=== PATIENT | female | born 1975 | race Asian ===

== ENCOUNTER 2018-09-25 11:42 | Emergency (ER) | payer OTHER ==
[~2018-09-25] VITALS: Ht 157.5 cm; Wt 65.9 kg
[2018-09-25 12:19] VITALS: BP_SYST 139
[2018-09-25] MEDS ORDERED: LEVO100 PO (12:25)
[2018-09-25] MEDS ORDERED: INSU100V SQ (12:25)
[2018-09-25] MEDS ORDERED: BRIV100T PO (12:25)
[2018-09-25] MEDS ORDERED: PREG75 PO (12:25)
[2018-09-25 12:30] LABS: GLUCOSE,POINT OF CARE 234 MG/DL (70-110)
[2018-09-25 12:56] LABS: BASOPHILS % (AUTO) 0.4 % (0.0-2.0); HEMATOCRIT 36.8 % (36-46); HEMOGLOBIN 11.7 g/dL (12.0-16.0); LYMPHOCYTES # (AUTO) 0.4 K/uL (1.0-4.8); MEAN CORPUSCULAR HEMOGLOBIN 29.9 pg (26.0-34.0); MEAN CORPUSCULAR HGB CONC 31.8 G/dL (31.0-37.0); MEAN CORPUSCULAR VOLUME 94 fL (80-100); MONOCYTES # (AUTO) 0.5 K/uL (0.1-1.0); MONOCYTES % (AUTO) 11.6 % (2.0-9.0); NEUTROPHILS # (AUTO) 3.1 K/uL (1.8-7.7); PLATELET COUNT (AUTO) 293 K/uL (150-450); RED BLOOD CELL COUNT(AUTO) 3.92 MIL/uL (4.00-5.20); RED CELL DISTRIBUTION WIDTH 15.8 % (11.5-14.5)
[2018-09-25 13:05] LABS: ANION GAP 7 mmol/L (8-16); CALCIUM, TOTAL 9.2 mg/dL (8.8-10.5); CARBON DIOXIDE 29 mmol/L (22-29); CHLORIDE 102 mmol/L (98-107); CREATININE 0.63 mg/dL (0.60-1.30); GLOMERULAR FILTR. RATE CALC > 60 mL/min (>60); GLUCOSE,RANDOM 221 mg/dL (70-110); POTASSIUM 4.1 mmol/L (3.5-5.1); SODIUM SERUM 138 mmol/L (136-145); UREA NITROGEN, BLOOD 13 mg/dL (7-18)
[2018-09-25 13:18] LABS: ALANINE AMINOTRANSFERASE 15 U/L (12-78); ALBUMIN 3.6 g/dL (3.4-5.0); ALKALINE PHOSPHATASE 79 U/L (46-116); ASPARTATE AMINOTRANSFERASE 18 U/L (15-37); BILIRUBIN,TOTAL 0.5 mg/dL (0.1-1.0); HCG,QUANTITATIVE < 1 mIU/mL (0-6); TOTAL PROTEIN, SERUM 6.8 g/dL (6.4-8.2)
[2018-09-25 13:21] LABS: ACETAMINOPHEN < 2 mcg/mL (10-30); SALICYLATE 0.2 mg/dL (2.8-20.0)
[2018-09-25 14:17] VITALS: BP_DIAS 68
[2018-09-25] MEDS ORDERED: ACETAMINOPHEN 500 MG TABLET PO ONE (14:30)
[2018-09-25 14:32] LABS: AMPHET/METH SCREEN,URINE NEGATIVE (NEGATIVE); BARBITURATE SCREEN, URINE NEGATIVE (NEGATIVE); BENZODIAZEPINES SCREEN,URINE NEGATIVE (NEGATIVE); CANNABINOID SCREEN,URINE NEGATIVE (NEGATIVE); COCAINE SCREEN,URINE NEGATIVE (NEGATIVE); METHADONE SCREEN, URINE NEGATIVE (NEGATIVE); OPIATE SCREEN,URINE NEGATIVE (NEGATIVE); PHENCYCLIDINE SCREEN,URINE NEGATIVE (NEGATIVE)
== END 2018-09-25 14:48 | disposition home or self-care (01) ==
LOC: EMS 11:43
DX: R45.851 Suicidal ideations (principal); J45.909 Unspecified asthma, uncomplicated; E11.9 Type 2 diabetes mellitus without complications; E03.9 Hypothyroidism, unspecified; Z79.4 Long term (current) use of insulin
CPT/HCPCS: 36415; 80053; 80307; 82962; 84702; 85025; 99285; G0480; G0481

== ENCOUNTER 2019-07-27 22:40 | Inpatient (IN) | payer MEDICAID, OTHER ==
[~2019-07-27] VITALS: Ht 157.5 cm; Wt 66.0 kg
[~2019-07-27 22:40] MED LIST: BRIV100T PO; INSU100V SQ; LEVO100 PO; PREG75 PO
[2019-07-27 23:26] LABS: BASOPHILS % (AUTO) 0.6 % (0.0-2.0); EOSINOPHILS % (AUTO) 4.4 % (1.0-6.0); HEMATOCRIT 40.3 % (36-46); HEMOGLOBIN 13.3 g/dL (12.0-16.0); LYMPHOCYTES # (AUTO) 0.9 K/uL (1.0-4.8); LYMPHOCYTES % (AUTO) 12.7 % (22.0-44.0); MEAN CORPUSCULAR HEMOGLOBIN 32.4 pg (26.0-34.0); MEAN CORPUSCULAR VOLUME 98 fL (80-100); MONOCYTES # (AUTO) 0.6 K/uL (0.1-1.0); NEUTROPHILS # (AUTO) 5.2 K/uL (1.8-7.7); NEUTROPHILS % (AUTO) 74.3 % (40.0-70.0); PLATELET COUNT (AUTO) 329 K/uL (150-450); RED BLOOD CELL COUNT(AUTO) 4.11 MIL/uL (4.00-5.20); RED CELL DISTRIBUTION WIDTH 13.5 % (11.5-14.5)
[2019-07-27] MEDS ORDERED: ACTIVATED CHARCOAL 50 GM/240 ML SUSPENSION PO ONE (23:30)
[2019-07-27 23:35] LABS: ANION GAP 6 mmol/L (8-16); CARBON DIOXIDE 27 mmol/L (22-29); CHLORIDE 108 mmol/L (98-107); GLOMERULAR FILTR. RATE CALC > 60 mL/min (>60); GLUCOSE,RANDOM 123 mg/dL (70-110); POTASSIUM 3.7 mmol/L (3.5-5.1); SODIUM SERUM 141 mmol/L (136-145); UREA NITROGEN, BLOOD 13 mg/dL (7-18)
[2019-07-27 23:44] LABS: SALICYLATE 0.9 mg/dL (2.8-20.0)
[2019-07-27 23:47] LABS: ALANINE AMINOTRANSFERASE 14 U/L (12-78); ALBUMIN 3.6 g/dL (3.4-5.0); ALKALINE PHOSPHATASE 76 U/L (46-116); ASPARTATE AMINOTRANSFERASE 11 U/L (15-37); BILIRUBIN,TOTAL 0.2 mg/dL (0.1-1.0); HCG,QUANTITATIVE < 1 mIU/mL (0-6); TOTAL PROTEIN, SERUM 6.9 g/dL (6.4-8.2)
[2019-07-27 23:49] LABS: ACETAMINOPHEN < 2 mcg/mL (10-30)
[2019-07-28 00:21] LABS: GLUCOSE,POINT OF CARE 157 MG/DL (70-110)
[2019-07-28 00:40] LABS: AMPHET/METH SCREEN,URINE NEGATIVE (NEGATIVE); BARBITURATE SCREEN, URINE NEGATIVE (NEGATIVE); BENZODIAZEPINES SCREEN,URINE NEGATIVE (NEGATIVE); CANNABINOID SCREEN,URINE NEGATIVE (NEGATIVE); COCAINE SCREEN,URINE NEGATIVE (NEGATIVE); METHADONE SCREEN, URINE NEGATIVE (NEGATIVE); OPIATE SCREEN,URINE NEGATIVE (NEGATIVE)
[2019-07-28 00:47] LABS: PHENCYCLIDINE SCREEN,URINE NEGATIVE (NEGATIVE)
[2019-07-28] MEDS ORDERED: INSLAN SQ (00:49)
[2019-07-28] MEDS ORDERED: GLUC1VIA6 IM (00:49)
[2019-07-28] MEDS ORDERED: FLUT16H NASAL (00:49)
[2019-07-28] MEDS ORDERED: NAPR-1025 PO (00:49)
[2019-07-28] MEDS ORDERED: FOLI-130 PO (00:49)
[2019-07-28] MEDS ORDERED: MONT10TA21 PO (00:49)
[2019-07-28] MEDS ORDERED: FERR325T24 PO (00:49)
[2019-07-28] MEDS ORDERED: TOPI100T37 PO (00:49)
[2019-07-28] MEDS ORDERED: ADV100 IH (00:49)
[2019-07-28] MEDS ORDERED: CLOB525T TP (00:49)
[2019-07-28 00:55] LABS: IRON, SERUM 120 mcg/dL (50-175)
[2019-07-28] MEDS ORDERED: HALOPERIDOL 5 MG TABLET PO PRN (04:00)
[2019-07-28] MEDS ORDERED: ZOLPIDEM TARTRATE 10 MG TABLET PO PRN (04:00)
[2019-07-28] MEDS ORDERED: LORazepam 2 MG TABLET PO PRN (04:00)
[2019-07-28 06:15] LABS: APPEARANCE,URINE CLEAR (CLEAR); BILIRUBIN,URINE NEGATIVE (NEGATIVE); GLUCOSE, URINE (UA) NEGATIVE (NEGATIVE); KETONES,URINE NEGATIVE (NEGATIVE); LEUKOCYTE ESTERASE ,URINE NEGATIVE (NEGATIVE); NITRATE,URINE NEGATIVE (NEGATIVE); OCCULT BLOOD,URINE NEGATIVE (NEGATIVE); PH,URINE 7.5 (5.0-8.0); PROTEIN,URINE NEGATIVE (NEGATIVE); UROBILINOGEN,URINE 0.2 mg/dL (<=1.0)
[2019-07-28 06:34] VITALS: BP 124/82
[2019-07-28] MEDS ORDERED: PNEUMOCOCCAL VACCINE POLYVALENT 0.5 ML VIAL [PPSV23] IM ONE (06:45)
[2019-07-28 08:00] VITALS: BP 116/64
[2019-07-28] MEDS ORDERED: MAG HYDROX/AL HYDROX/SIMETH ES 30 ML SUSPENSION UDCUP PO PRN (08:15)
[2019-07-28] MEDS ORDERED: ONDANSETRON HCL 4 MG TABLET PO PRN (08:15)
[2019-07-28] MEDS ORDERED: PETROLATUM,WHITE 28 GM JELLY TP PRN (08:15)
[2019-07-28] MEDS ORDERED: MAGNESIUM HYDROXIDE SUSPENSION 30 ML UDCUP PO PRN (08:15)
[2019-07-28] MEDS ORDERED: ACETAMINOPHEN 325 MG TABLET PO PRN (08:15)
[2019-07-28] MEDS ORDERED: CloNIDine HCL 0.1 MG TABLET PO PRN (08:15)
[2019-07-28] MEDS ORDERED: DOCUSATE SODIUM 100 MG CAPSULE PO PRN (08:15)
[2019-07-28] MEDS ORDERED: GuaiFENesin/D-METHORPHAN [SUGAR-FREE] 200-20MG/10 ML SYRUP UDCUP PO PRN (08:15)
[2019-07-28] MEDS ORDERED: LOPERAMIDE HCL 2 MG CAPSULE PO PRN (08:15)
[2019-07-28] MEDS ORDERED: IBUPROFEN 400 MG TABLET PO PRN (08:15)
[2019-07-28] MEDS ORDERED: ALBUTEROL SULFATE HFA 90 MCG/PUFF 8 GM INHALER IH PRN (08:15)
[2019-07-28 08:35] LABS: GLUCOMETER DEV NAME(LOC) 3E.I 2; GLUCOSE,POINT OF CARE 306 MG/DL (70-110)
[2019-07-28] MEDS ORDERED: DEXTROSE 50%-WATER 25 GM/50 ML SYRINGE IVP PRN (09:15)
[2019-07-28] MEDS: INSULIN LISPRO 100 UNITS/ML SQ PRN ×4 (10:06→20:41)
[2019-07-28] MEDS: INSULIN GLARGINE,HUM.REC.ANLOG 100 UNITS/ML SQ SCH ×2 (10:07→21:19)
[2019-07-28] MEDS: MONTELUKAST SODIUM 10 MG TABLET PO SCH (10:10)
[2019-07-28] MEDS: FOLIC ACID 1 MG TABLET PO SCH (10:11)
[2019-07-28 12:03] LABS: GLUCOMETER DEV NAME(LOC) 3E.I 2; GLUCOSE,POINT OF CARE 263 MG/DL (70-110)
[2019-07-28 16:00] VITALS: BP 108/87
[2019-07-28 17:32] LABS: GLUCOMETER DEV NAME(LOC) 3E.I 2; GLUCOSE,POINT OF CARE 288 MG/DL (70-110)
[2019-07-28] MEDS: CLOBETASOL 0.05% 25 ML SOLUTION TP SCH (20:15)
[2019-07-28 20:50] LABS: GLUCOMETER DEV NAME(LOC) 3E.I 2; GLUCOSE,POINT OF CARE 241 MG/DL (70-110)
[2019-07-29] MEDS: LEVOTHYROXINE SODIUM 100 MCG TABLET PO SCH (06:42)
[2019-07-29] MEDS: INSULIN LISPRO 100 UNITS/ML SQ PRN (07:08)
[2019-07-29 08:00] VITALS: BP 119/67
[2019-07-29 08:51] LABS: ALANINE AMINOTRANSFERASE 13 U/L (12-78); ALBUMIN 3.2 g/dL (3.4-5.0); ALKALINE PHOSPHATASE 65 U/L (46-116); ANION GAP 10 mmol/L (8-16); ASPARTATE AMINOTRANSFERASE 9 U/L (15-37); BILIRUBIN,TOTAL 0.5 mg/dL (0.1-1.0); CALCIUM, TOTAL 8.7 mg/dL (8.8-10.5); CARBON DIOXIDE 22 mmol/L (22-29); CHLORIDE 108 mmol/L (98-107); CHOL/HDL RATIO 2.3 (3.9-5.7); CHOLESTEROL 144 mg/dL (131-200); CREATININE 0.56 mg/dL (0.60-1.30); GLOMERULAR FILTR. RATE CALC > 60 mL/min (>60); GLUCOSE,RANDOM 224 mg/dL (70-110); HDL CHOLESTEROL 64 mg/dL (40-60); LDL CHOL (CALC.) 67 mg/dL (0-130); POTASSIUM 3.5 mmol/L (3.5-5.1); SODIUM SERUM 140 mmol/L (136-145); TOTAL PROTEIN, SERUM 6.6 g/dL (6.4-8.2); TRIGLYCERIDES 63 mg/dL (15-150); UREA NITROGEN, BLOOD 12 mg/dL (7-18)
[2019-07-29 08:57] LABS: HEMOGLOBIN A1C 6.5 % (3.8-5.6)
[2019-07-29] MEDS: TOPIRAMATE 100 MG TABLET PO SCH (09:00)
[2019-07-29] MEDS: FOLIC ACID 1 MG TABLET PO SCH (09:00)
[2019-07-29] MEDS: MONTELUKAST SODIUM 10 MG TABLET PO SCH (09:00)
[2019-07-29] MEDS: INSULIN GLARGINE,HUM.REC.ANLOG 100 UNITS/ML SQ SCH ×2 (09:21→20:45)
[2019-07-29 09:51] VITALS: BP 119/67
[2019-07-29] MEDS ORDERED: ALBU8HFA IH (11:16)
[2019-07-29] MEDS ORDERED: FLUT1AER4 IH (11:16)
[2019-07-29] MEDS: INSULIN LISPRO 100 UNITS/ML SQ SCH ×2 (11:41→17:27)
[2019-07-29] MEDS ORDERED: BRIVARACETAM 100 MG PO SCH (17:00)
[2019-07-29 17:13] VITALS: BP 115/67
[2019-07-29] MEDS: CLOBETASOL 0.05% 25 ML SOLUTION TP SCH (21:50)
[2019-07-30] MEDS: LEVOTHYROXINE SODIUM 100 MCG TABLET PO SCH (06:52)
[2019-07-30] MEDS: INSULIN LISPRO 100 UNITS/ML SQ SCH ×2 (06:54→11:33)
[2019-07-30 08:00] VITALS: BP 135/83
[2019-07-30] MEDS: MONTELUKAST SODIUM 10 MG TABLET PO SCH (08:49)
[2019-07-30] MEDS: TOPIRAMATE 100 MG TABLET PO SCH (08:49)
[2019-07-30] MEDS: INSULIN GLARGINE,HUM.REC.ANLOG 100 UNITS/ML SQ SCH (08:50)
[2019-07-30] MEDS: FOLIC ACID 1 MG TABLET PO SCH (08:50)
== END 2019-07-30 16:30 | disposition home or self-care (01) | DRG 885 ==
LOC: EMS 22:41 → 3EI 07-28 03:54
PROVIDERS: ADMIT Psychiatry & Neurology Psychiatry; ATTEND Psychiatry & Neurology Psychiatry
PROC: 3E0234Z Introduction of Serum, Toxoid and Vaccine into Muscle, Percutaneous Approach (ICD-10-PCS; principal; 2019-07-28)
DX: F25.9 Schizoaffective disorder, unspecified (principal); R45.851 Suicidal ideations; F32.9 Major depressive disorder, single episode, unspecified; J44.9 Chronic obstructive pulmonary disease, unspecified; I10 Essential (primary) hypertension; E11.9 Type 2 diabetes mellitus without complications; T65.92XA Toxic effect of unspecified substance, intentional self-harm, initial encounter; E03.9 Hypothyroidism, unspecified; G40.909 Epilepsy, unspecified, not intractable, without status epilepticus; D64.9 Anemia, unspecified; Z88.8 Allergy status to other drugs, medicaments and biological substances; Z88.6 Allergy status to analgesic agent; Z91.040 Latex allergy status; Z23 Encounter for immunization
CPT/HCPCS: 83036; 83540; 90732; 93005; 99291; G0480; G0481; J1815

== ENCOUNTER 2020-09-24 18:01 | Inpatient (IN) | payer MEDICAID, OTHER ==
[~2020-09-24] VITALS: Ht 157.5 cm; Wt 58.5 kg
[~2020-09-24 18:01] MED LIST changes: +FOLI-130 PO; -INSU100V SQ; +MONT-35 PO; -PREG75 PO; +TOPI100T37 PO; +[UNRECOGNIZED DRUG - CODE] TP
[2020-09-24 19:11] LABS: BASOPHILS % (AUTO) 0.9 % (0.0-2.0); EOSINOPHILS % (AUTO) 5.7 % (1.0-6.0); LYMPHOCYTES # (AUTO) 1.1 K/uL (1.0-4.8); LYMPHOCYTES % (AUTO) 21.1 % (22.0-44.0); MEAN CORPUSCULAR HEMOGLOBIN 32.4 pg (26.0-34.0); MEAN CORPUSCULAR HGB CONC 32.5 G/dL (31.0-37.0); MEAN CORPUSCULAR VOLUME 100 fL (80-100); MONOCYTES # (AUTO) 0.5 K/uL (0.1-1.0); MONOCYTES % (AUTO) 9.9 % (2.0-9.0); NEUTROPHILS # (AUTO) 3.2 K/uL (1.8-7.7); NEUTROPHILS % (AUTO) 62.4 % (40.0-70.0); PLATELET COUNT (AUTO) 311 K/uL (150-450)
[2020-09-24 19:13] LABS: COVID AG,FIA SOURCE NASOPHARYNGEAL
[2020-09-24 19:22] LABS: ANION GAP 13 mmol/L (8-16); CALCIUM, TOTAL 8.5 mg/dL (8.8-10.5); CARBON DIOXIDE 21 mmol/L (22-29); CHLORIDE 109 mmol/L (98-107); CREATININE 0.62 mg/dL (0.60-1.30); GLOMERULAR FILTR. RATE CALC > 60 mL/min (>60); GLUCOSE,RANDOM 64 mg/dL (70-110); POTASSIUM 3.2 mmol/L (3.5-5.1); SODIUM SERUM 143 mmol/L (136-145); UREA NITROGEN, BLOOD 10 mg/dL (7-18)
[2020-09-24 19:25] LABS: AMPHET/METH SCREEN,URINE NEGATIVE (NEGATIVE); BARBITURATE SCREEN, URINE NEGATIVE (NEGATIVE); BENZODIAZEPINES SCREEN,URINE POSITIVE (NEGATIVE); CANNABINOID SCREEN,URINE NEGATIVE (NEGATIVE); COCAINE SCREEN,URINE NEGATIVE (NEGATIVE); METHADONE SCREEN, URINE NEGATIVE (NEGATIVE); OPIATE SCREEN,URINE NEGATIVE (NEGATIVE); PHENCYCLIDINE SCREEN,URINE NEGATIVE (NEGATIVE)
[2020-09-24 19:33] LABS: ALANINE AMINOTRANSFERASE 18 U/L (12-78); ALBUMIN 3.8 g/dL (3.4-5.0); ALKALINE PHOSPHATASE 63 U/L (46-116); ASPARTATE AMINOTRANSFERASE 12 U/L (15-37); BILIRUBIN,TOTAL 0.2 mg/dL (0.1-1.0); HCG,QUANTITATIVE < 1 mIU/mL (0-6)
[2020-09-24] MEDS ORDERED: LORazepam 2 MG/ML VIAL IM ONE (19:45)
[2020-09-24] MEDS ORDERED: POTASSIUM CHLORIDE 20 MEQ ER TABLET PO ONE (19:45)
[2020-09-24] MEDS ORDERED: HALOPERIDOL LACTATE 5 MG/ML VIAL IM ONE (19:45)
[2020-09-24] MEDS ORDERED: DiphenhydrAMINE HCL 50 MG/ML VIAL IM ONE (19:45)
[2020-09-24] MEDS ORDERED: HALOPERIDOL 5 MG TABLET PO PRN (20:30)
[2020-09-24 22:15] LABS: GLUCOMETER DEV NAME(LOC) ERT.5; GLUCOSE,POINT OF CARE 151 MG/DL (70-110)
[2020-09-25] MEDS: ZOLPIDEM TARTRATE 10 MG TABLET PO PRN (01:33)
[2020-09-25] MEDS: LORazepam 2 MG TABLET PO PRN (01:33)
[2020-09-25 01:47] VITALS: BP 92/62
[2020-09-25] MEDS ORDERED: -PHARMACY VACCINE NOTE- MISC ONE (02:00)
[2020-09-25 08:00] VITALS: BP 105/60
[2020-09-25] MEDS ORDERED: TOPIRAMATE 100 MG TABLET PO SCH (09:00)
[2020-09-25] MEDS ORDERED: MAGNESIUM HYDROXIDE SUSPENSION 30 ML UDCUP PO PRN (10:30)
[2020-09-25] MEDS ORDERED: MAG HYDROX/AL HYDROX/SIMETH ES 30 ML SUSPENSION UDCUP PO PRN (10:30)
[2020-09-25] MEDS ORDERED: GuaiFENesin/D-METHORPHAN [SUGAR-FREE] 200-20MG/10 ML SYRUP UDCUP PO PRN (10:30)
[2020-09-25] MEDS ORDERED: ALBUTEROL SULFATE HFA 90 MCG/PUFF 8 GM INHALER IH PRN (10:30)
[2020-09-25] MEDS ORDERED: PETROLATUM,WHITE 28 GM JELLY TP PRN (10:30)
[2020-09-25] MEDS ORDERED: CloNIDine HCL 0.1 MG TABLET PO PRN (10:30)
[2020-09-25] MEDS: CITALOPRAM HYDROBROMIDE 10 MG TABLET PO SCH ×2 (10:30→11:34)
[2020-09-25] MEDS ORDERED: ACETAMINOPHEN 325 MG TABLET PO PRN (10:30)
[2020-09-25] MEDS ORDERED: DOCUSATE SODIUM 100 MG CAPSULE PO PRN (10:30)
[2020-09-25] MEDS ORDERED: ONDANSETRON HCL 4 MG TABLET PO PRN (10:30)
[2020-09-25] MEDS ORDERED: GLUCAGON,HUMAN RECOMBINANT 1 MG VIAL IM PRN (10:30)
[2020-09-25] MEDS: MONTELUKAST SODIUM 10 MG TABLET PO SCH (11:36)
[2020-09-25] MEDS: LEVOTHYROXINE SODIUM 100 MCG TABLET PO SCH (11:36)
[2020-09-25 12:12] LABS: GLUCOMETER DEV NAME(LOC) 3E.C; GLUCOSE,POINT OF CARE 124 MG/DL (70-110)
[2020-09-25 13:54] LABS: CHOL/HDL RATIO 2.4 (3.9-5.7)
[2020-09-25 16:24] VITALS: BP 111/74
[2020-09-25 16:55] LABS: GLUCOMETER DEV NAME(LOC) 3E.C; GLUCOSE,POINT OF CARE 235 MG/DL (70-110)
[2020-09-25] MEDS: INSULIN LISPRO 100 UNITS/ML SQ PRN ×2 (17:04→20:58)
[2020-09-25] MEDS: *NON-FORMULARY MED [ENTER DRUG, DOSE, FREQ IN COMMENTS] CLINICAL SCH (20:02)
[2020-09-25] MEDS: TOPIRAMATE 100 MG TABLET PO SCH ×2 (20:35→21:00)
[2020-09-25] MEDS: CLOBAZAM 10MG TABLET PO SCH (20:35)
[2020-09-25 21:04] LABS: GLUCOMETER DEV NAME(LOC) 3E.C; GLUCOSE,POINT OF CARE 159 MG/DL (70-110)
[2020-09-26 04:13] VITALS: BP 110/58
[2020-09-26] MEDS: IBUPROFEN 400 MG TABLET PO PRN ×3 (04:16→21:21)
[2020-09-26 06:29] LABS: GLUCOMETER DEV NAME(LOC) 3E.C; GLUCOSE,POINT OF CARE 227 MG/DL (70-110)
[2020-09-26] MEDS: LEVOTHYROXINE SODIUM 100 MCG TABLET PO SCH (07:00)
[2020-09-26] MEDS: INSULIN LISPRO 100 UNITS/ML SQ PRN ×4 (07:04→21:31)
[2020-09-26 08:00] VITALS: BP 99/58
[2020-09-26] MEDS: CITALOPRAM HYDROBROMIDE 10 MG TABLET PO SCH (09:00)
[2020-09-26] MEDS: TOPIRAMATE 100 MG TABLET PO SCH ×2 (09:00→17:22)
[2020-09-26] MEDS: CLOBAZAM 10MG TABLET PO SCH ×3 (09:08→17:23)
[2020-09-26] MEDS: *NON-FORMULARY MED [ENTER DRUG, DOSE, FREQ IN COMMENTS] CLINICAL SCH ×2 (09:08→17:00)
[2020-09-26] MEDS: MONTELUKAST SODIUM 10 MG TABLET PO SCH (09:09)
[2020-09-26 12:14] LABS: GLUCOMETER DEV NAME(LOC) 3E.C; GLUCOSE,POINT OF CARE 254 MG/DL (70-110)
[2020-09-26 16:31] VITALS: BP 113/68
[2020-09-26 17:14] LABS: GLUCOMETER DEV NAME(LOC) 3E.C; GLUCOSE,POINT OF CARE 229 MG/DL (70-110)
[2020-09-26 20:33] LABS: GLUCOMETER DEV NAME(LOC) 3E.C; GLUCOSE,POINT OF CARE 275 MG/DL (70-110)
[2020-09-26 21:21] VITALS: BP 119/65
[2020-09-26 22:21] VITALS: BP 115/61
[2020-09-27 05:37] VITALS: BP 117/63
[2020-09-27] MEDS: IBUPROFEN 400 MG TABLET PO PRN (05:37)
[2020-09-27 06:11] LABS: GLUCOMETER DEV NAME(LOC) 3E.I 2; GLUCOSE,POINT OF CARE 292 MG/DL (70-110)
[2020-09-27] MEDS: INSULIN LISPRO 100 UNITS/ML SQ PRN ×4 (06:51→21:28)
[2020-09-27] MEDS: LEVOTHYROXINE SODIUM 100 MCG TABLET PO SCH (06:51)
[2020-09-27] MEDS: *NON-FORMULARY MED [ENTER DRUG, DOSE, FREQ IN COMMENTS] CLINICAL SCH ×2 (08:27→16:46)
[2020-09-27] MEDS: CLOBAZAM 10MG TABLET PO SCH ×2 (08:27→16:22)
[2020-09-27] MEDS: MONTELUKAST SODIUM 10 MG TABLET PO SCH (08:28)
[2020-09-27 08:36] VITALS: BP 130/69
[2020-09-27] MEDS: TOPIRAMATE 100 MG TABLET PO SCH ×2 (09:00→16:24)
[2020-09-27] MEDS: CITALOPRAM HYDROBROMIDE 10 MG TABLET PO SCH (09:00)
[2020-09-27 12:07] LABS: GLUCOMETER DEV NAME(LOC) 3E.C; GLUCOSE,POINT OF CARE 382 MG/DL (70-110)
[2020-09-27 16:15] VITALS: BP 106/73
[2020-09-27 16:18] LABS: GLUCOMETER DEV NAME(LOC) 3E.C; GLUCOSE,POINT OF CARE 242 MG/DL (70-110)
[2020-09-27 16:22] VITALS: BP 127/71
[2020-09-27] MEDS: LORazepam 2 MG TABLET PO PRN (16:22)
[2020-09-27 17:22] VITALS: BP 120/71
[2020-09-27 20:50] LABS: GLUCOMETER DEV NAME(LOC) 3E.C; GLUCOSE,POINT OF CARE 274 MG/DL (70-110)
[2020-09-28 06:18] LABS: GLUCOMETER DEV NAME(LOC) 3E.C; GLUCOSE,POINT OF CARE 322 MG/DL (70-110)
[2020-09-28 06:25] VITALS: BP_SYST 91; BP_DIAS 54; BP_DIAS 64
[2020-09-28] MEDS: IBUPROFEN 400 MG TABLET PO PRN (06:34)
[2020-09-28] MEDS: LEVOTHYROXINE SODIUM 100 MCG TABLET PO SCH (06:50)
[2020-09-28] MEDS: INSULIN LISPRO 100 UNITS/ML SQ PRN ×4 (07:02→20:46)
[2020-09-28 08:51] VITALS: BP 108/60
[2020-09-28] MEDS: *NON-FORMULARY MED [ENTER DRUG, DOSE, FREQ IN COMMENTS] CLINICAL SCH (09:00)
[2020-09-28] MEDS: CITALOPRAM HYDROBROMIDE 10 MG TABLET PO SCH ×2 (09:00→09:30)
[2020-09-28] MEDS: MONTELUKAST SODIUM 10 MG TABLET PO SCH (09:30)
[2020-09-28] MEDS: CLOBAZAM 10MG TABLET PO SCH ×2 (09:30→17:06)
[2020-09-28] MEDS: TOPIRAMATE 100 MG TABLET PO SCH ×2 (09:38→17:06)
[2020-09-28 12:29] LABS: GLUCOMETER DEV NAME(LOC) 3E.C; GLUCOSE,POINT OF CARE 362 MG/DL (70-110)
[2020-09-28] MEDS: LOPERAMIDE HCL 2 MG CAPSULE PO PRN (13:49)
[2020-09-28 16:00] VITALS: BP 110/74
[2020-09-28 17:01] LABS: GLUCOMETER DEV NAME(LOC) 3E.C; GLUCOSE,POINT OF CARE 212 MG/DL (70-110)
[2020-09-28 20:34] LABS: GLUCOMETER DEV NAME(LOC) 3E.C; GLUCOSE,POINT OF CARE 302 MG/DL (70-110)
[2020-09-29] MEDS: ZOLPIDEM TARTRATE 10 MG TABLET PO PRN (00:46)
[2020-09-29] MEDS: LOPERAMIDE HCL 2 MG CAPSULE PO PRN (00:49)
[2020-09-29 06:35] LABS: GLUCOMETER DEV NAME(LOC) 3E.C; GLUCOSE,POINT OF CARE 341 MG/DL (70-110)
[2020-09-29] MEDS: LEVOTHYROXINE SODIUM 100 MCG TABLET PO SCH (07:01)
[2020-09-29] MEDS: INSULIN LISPRO 100 UNITS/ML SQ PRN ×2 (07:02→12:28)
[2020-09-29 08:03] VITALS: BP 98/57
[2020-09-29] MEDS: CLOBAZAM 10MG TABLET PO SCH (08:14)
[2020-09-29] MEDS: CITALOPRAM HYDROBROMIDE 10 MG TABLET PO SCH (08:14)
[2020-09-29] MEDS: MONTELUKAST SODIUM 10 MG TABLET PO SCH (08:14)
[2020-09-29] MEDS: TOPIRAMATE 100 MG TABLET PO SCH (08:16)
[2020-09-29] MEDS ORDERED: THIAMINE 100 MG TABLET PO SCH (09:00)
[2020-09-29] MEDS ORDERED: MULTIVITAMINS, THERAPEUTIC TABLET PO SCH (09:00)
[2020-09-29 12:13] LABS: GLUCOMETER DEV NAME(LOC) 3E.C; GLUCOSE,POINT OF CARE 440 MG/DL (70-110)
[2020-09-29] MEDS ORDERED: INSULIN LISPRO 100 UNITS/ML SQ ONE (12:30)
[2020-09-29] MEDS ORDERED: MULT-1239 PO (13:43)
[2020-09-29] MEDS ORDERED: CITA10TA99 PO (13:43)
[2020-09-29] MEDS ORDERED: THIA100T80 PO (13:43)
== END 2020-09-29 14:53 | disposition home or self-care (01) | DRG 751 ==
LOC: EMS 18:11 → 3EC 21:23
PROVIDERS: ADMIT Psychiatry & Neurology Psychiatry; ATTEND Psychiatry & Neurology Psychiatry
DX: F33.2 Major depressive disorder, recurrent severe without psychotic features (principal); G40.909 Epilepsy, unspecified, not intractable, without status epilepticus; E03.9 Hypothyroidism, unspecified; Z20.822 Contact with and (suspected) exposure to COVID-19; J45.909 Unspecified asthma, uncomplicated; E87.6 Hypokalemia; E11.65 Type 2 diabetes mellitus with hyperglycemia
CPT/HCPCS: 80053; 80061; 82962; 83036; 84132; 84702; 85025; 99291; A9575; G0480; J1200; J1630; J1815; J2060